=== PATIENT | female | born 1975 | race Caucasian/White ===

== ENCOUNTER 2017-11-04 11:57 | Inpatient (IN) | payer BC ==
--- NOTE | 2017-10-27 11:21 | HP ---
Admitting History and Physical - Primary Care Physician PCP: Kaleb Pan - Admission Chief Complaint: BRCA positive History of Present Illness: 41 year old postmenapausal female of Ashkenazi Heritage BRCA 1 positive. She underwent TAHBSO 07/2017 and is on transdermal estrogen. 04/2017 mammogram showed dense breast and US benign . Breast MRI 08/2017 [facility]. History Source: Patient Limitations to Obtaining History: No Limitations - Past Surgical History Past Surgical History: Yes: (x3), Hysterectomy (TAHBSO 07/2017 benign excisional bx left breast benign 2004) - Smoking History Smoking history: Former smoker Have you smoked in the past 12 months: No - Alcohol/Substance Use Hx Alcohol Use: Yes (2 to 3 per week) Home Medications - Allergies Allergies/Adverse Reactions: Allergies Allergy/AdvReac Type Severity Reaction Status Date / Time Penicillins Allergy Verified 10/27/17 11:33 - Home Medications Home Medications (free text): Vivelle dot Family Disease History - Family Disease History Family Disease History: CA: Grandparent (mat GM ovarian ca 76), Mother (BRCA positive) Other Family History: mat aunt ovarian ca 75 BRCA +. mat [place] breast ca. mat cousin BRCA + Physical Examination Constitutional: Yes: Well Nourished Breast(s): Yes: Other (ptotic A cup breasts no palpable masses or adenopathy bilaterally) Problem List - Problems (1) BRCA1 positive Code(s): Z15.01 - GENETIC SUSCEPTIBILITY TO MALIGNANT NEOPLASM OF BREAST; Z15.09 - GENETIC SUSCEPTIBILITY TO OTHER MALIGNANT NEOPLASM Assessment/Plan Bilateral total nipple sparing prophylactic mastectomies reconstruction
[2017-10-29 12:25] VITALS: BMI 19.9
[2017-11-04] MEDS ORDERED: MIDAZOLAM HCL 2 MG/2 ML SINGLE DOSE VIAL ONE (12:47)
[2017-11-04] MEDS ORDERED: BUPIVACAINE HCL/PF (5 MG/ML) 30 ML VIAL IJ ONE (12:47)
[2017-11-04] MEDS ORDERED: DEXAMETHASONE SOD PHOSPHATE/PF 10 MG/ML SDV ONE (12:47)
[2017-11-04] MEDS ORDERED: PROPOFOL 20 ML ONE (13:37)
[2017-11-04] MEDS ORDERED: ROCURONIUM BROMIDE 50 MG/5 ML VIAL ONE ×2 (13:37→15:02)
[2017-11-04] MEDS ORDERED: SUCCINYLCHOLINE CHLORIDE 200 MG/10 ML VIAL ONE (13:38)
[2017-11-04] MEDS ORDERED: ceFAZolin SODIUM 1 GM VIAL ONE ×2 (13:56→14:15)
[2017-11-04] MEDS ORDERED: ePHEDrine SULFATE 50 MG/1 ML AMPULE ONE (14:08)
[2017-11-04] MEDS ORDERED: GENTAMICIN SO4 80 MG/2 ML VIAL ONE (14:15)
[2017-11-04] MEDS ORDERED: oxyCODONE HCL 5 MG TABLET PO PRN ×2 (14:21→14:23)
[2017-11-04] MEDS ORDERED: ONDANSETRON 4 MG/2 ML VIAL IVPUSH PRN ×2 (14:21→15:36)
[2017-11-04] MEDS ORDERED: LACTATED RINGERS SOLUTION 1,000 ML IV SCH (14:30)
[2017-11-04] MEDS ORDERED: ZOLPIDEM TARTRATE 5 MG TABLET PO PRN (15:36)
[2017-11-04] MEDS ORDERED: ACETAMINOPHEN 325 MG TABLET (FP) PO PRN (15:36)
[2017-11-04] MEDS ORDERED: DEXTROSE 5%-0.45% SALINE 1,000 ML IV SCH (15:45)
[2017-11-04] MEDS ORDERED: NEOSTIGMINE METHYLSULFATE 0.5 MG/ML - 10 ML MDV ONE (16:05)
[2017-11-04] MEDS ORDERED: ONDANSETRON 4 MG/2 ML VIAL ONE (16:12)
[2017-11-04] MEDS ORDERED: traMADol HCL 50 MG TABLET ONE (17:12)
[2017-11-04] MEDS ORDERED: diazePAM 2 MG TABLET ONE (17:12)
[2017-11-04] MEDS ORDERED: ACETAMINOPHEN 325 MG TABLET (FP) PO ONE (17:45)
[2017-11-04] MEDS ORDERED: traMADol HCL 50 MG TABLET PO ONE (17:46)
[2017-11-04] MEDS ORDERED: diazePAM 2 MG TABLET PO ONE (17:46)
[2017-11-04] MEDS: diazePAM 2 MG TABLET PO SCH ×2 (19:26→22:02)
[2017-11-04] MEDS: traMADol HCL 50 MG TABLET PO SCH ×2 (19:26→22:01)
[2017-11-04] MEDS: ACETAMINOPHEN 325 MG TABLET (FP) PO SCH ×2 (19:26→20:55)
[2017-11-05] MEDS: ACETAMINOPHEN 325 MG TABLET (FP) PO SCH ×4 (02:53→21:00)
[2017-11-05] MEDS: diazePAM 2 MG TABLET PO SCH ×2 (06:17→14:42)
[2017-11-05] MEDS: traMADol HCL 50 MG TABLET PO SCH ×2 (06:17→14:40)
[2017-11-05 09:10] LABS: HEMOGLOBIN 11.5 GM/dl (10.7-15.3); MCH 30.6 pg (25.7-33.7); MCHC 34.8 g/dl (32.0-36.0); MEAN CELL VOLUME 87.7 fl (80-96); PLATELET COUNT 217 K/MM3 (134-434); RBC 3.77 M/mm3 (3.60-5.2); RDW 12.2 % (11.6-15.6); WHITE BLOOD COUNT 9.9 K/mm3 (4.0-10.8)
--- NOTE | 2017-11-05 09:31 | OP ---
DATE OF OPERATION: 11/04/2017 PREOPERATIVE DIAGNOSIS: Genetic susceptibility for breast cancer with strong family history, BRCA1 positive. POSTOPERATIVE DIAGNOSIS: Genetic susceptibility for breast cancer with strong family history, BRCA1 positive. PROCEDURE: Bilateral total nipple-sparing mastectomies through an inframammary approach with bilateral direct implant reconstruction with AlloDerm. ANESTHESIA: General endotracheal anesthesia. PRIMARY SURGEON: Jenny Hernandez MD DIRECTOR OF TEACHING AND LEARNING: CHEMA Carlisle PRIMARY SURGEON FOR THE BILATERAL DIRECT IMPLANT RECONSTRUCTION WITH ALLDERM: Jenny Reagan MD HIS DIRECTOR OF TEACHING AND LEARNING: CHEMA Espinosa COMPLICATIONS: There were no complications. INDICATIONS: Briefly, the patient is a 41-year-old postmenopausal white female of Ashkenazi [place] [employer] heritage. She has a strong family history with her maternal great aunt who had breast cancer as well as maternal grandmother who had ovarian cancer and maternal aunt who had ovarian cancer. The patient as well as her mother, maternal aunt, and maternal cousin all tested BRCA1 positive with a 187delAG mutation. The patient had a prophylactic NIKO-BSO July of 2017 and uses transdermal estrogen. She had a recent MRI August of 2017 which was negative and mammography and ultrasound April of 2017 were negative. The patient was seen in consultation regarding risk reduction prophylactic mastectomy. She understood our technique of doing a nipple-sparing mastectomy through an inframammary approach and understood that we do retroareolar biopsies at the time of surgery. If these show cancer, we would remove the nipples. She understood the lack of any evidence drawn from doing prophylactic sentinel lymph node biopsies. Patient understood all complications of the procedure including risk of skin flap necrosis, nipple loss, hematoma, and infection. She was seen by the plastic surgeon preoperatively understood the direct implant reconstruction technique. She was brought in for the procedure on November 04, 2017. In the holding area, site verification was made and informed consent was obtained. She was marked preoperatively by the plastic surgeon. DESCRIPTION OF PROCEDURE: She was brought into the operating room and laid on the OR table in the supine position. Venodynes were placed on the lower extremities prior to induction. She received a gram of Ancef prior to incision. Both breasts were sterilely prepped and draped in the usual fashion. Inframammary incisions were marked out bilaterally in inframammary folds, about 8 cm in length, symmetrically. The left mastectomy was first performed. Incision was made in the inframammary fold 8 cm in length, and the skin edges were everted, and the breast was retracted inferiorly using [place] clamps. The skin flap was raised using the PEAK radiofrequency device superiorly to the level of the clavicle, medially to the level of the sternum, laterally to the level of the latissimus, and inferiorly below the level of the inframammary fold. The breast was taken down off the pectoralis major muscle from inferomedial to superolateral and completely removed intact. It was oriented with the long-lateral short-superior suture and weighed to allow for appropriate cosmetic result. Skin flaps were trimmed for good cosmetic result. A retroareolar biopsy was taken underneath the left nipple areolar complex and sent for frozen section. It came back negative, so, the left nipple was spared. At this point, the right mastectomy was performed using a symmetrical incision in the right inframammary fold 8 cm in length. Again, the skin edges were everted, and the breast tissue retracted inferiorly using [place] clamps. The skin flap was raised superiorly to the level of the clavicle, medially to the level of the sternum, laterally to the level of the latissimus, and inferiorly below the level of the inframammary fold. The breast was taken down off the pectoralis major muscle using electrocautery from inferomedial to superolateral, and completely removed intact. It was oriented with the long-lateral short-superior suture and weighed to allow for appropriate cosmetic result. Skin flaps were trimmed again for a good cosmetic result, and hemostasis was achieved. A right retroareolar biopsy was taken underneath the right nipple areolar complex and sent for frozen section. It came back negative, so, the right nipple was spared, as well. Both breasts were sent in formalin down to Pathology. At this point, bilateral subpectoral direct implant reconstruction was performed by Dr. Reagan using AlloDerm, which was sutured into the inferolateral aspects of both pectoralis major muscles to allow for the direct implant reconstruction. Two Juan drains were placed around each implant, brought through separate stab incisions on the lateral skin flaps, and secured in place using 2-0 nylon sutures. Drains were placed under JUSTIN sterile bulb suction. All wounds were closed by plastic surgery using interrupted 3-0 deep dermal PDS suture and a running 4-0 subcuticular Biosyn suture. Mastisol and Steri-Strips were applied over the wounds. The patient did receive a pectoral block preoperatively in the holding area prior to coming to the OR for postoperative pain control. The patient will be extubated at the end of the case and recovered in the recovery room and then admitted postoperatively for pain management and wound management. All sponge and needle counts were correct at this point in the case. Estimated blood loss was about 100 mL. She was hemodynamically stable throughout. We did use the SPY Skin Perfusion Device at the end of the case, and there was some slow decreased perfusion in both nipple areolar complexes, so, we will use a bear-hugger which we placed on the patient in the perioperative period. JENNY HERNANDEZ M.D. [id number]
--- NOTE | 2017-11-05 09:31 | PN ---
Progress Note, Physician Chief Complaint: S/P bilateral mastectomy with implant reconstruction POD#1 History of Present Illness: Patient was seen at the bedside and reports good pain control with no other complaints. - Current Medication List Current Medications: Active Medications Acetaminophen (Tylenol -) 650 mg PO Q6H [facility] Last Admin: 11/05/17 08:59 Dose: 650 mg Acetaminophen (Tylenol -) 650 mg PO Q4H PRN PRN Reason: FEVER Diazepam (Valium -) 2 mg PO Q8H [facility] Last Admin: 11/05/17 06:17 Dose: 2 mg Fentanyl (Sublimaze Injection -) 25 mcg IVPUSH [id number] PRN PRN Reason: PAIN-PACU ORDER X 4 DOSES ONLY Lactated Ringer's (Lactated Ringers Solution) 1,000 mls @ 125 mls/hr IV ASDIR [facility] Last Admin: 11/04/17 19:26 Dose: Not Given Dextrose/Sodium Chloride (D5-1/2ns -) 1,000 mls @ 100 mls/hr IV ASDIR [facility] Last Admin: 11/04/17 19:25 Dose: Not Given Levofloxacin (Levaquin 500 Mg Premixed Ivpb -) 500 mg in 100 mls @ 100 mls/hr IVPB DAILY [facility] Ondansetron HCl (Zofran Injection) 4 mg IVPUSH Q6H PRN PRN Reason: NAUSEA AND/OR VOMITING Ondansetron HCl (Zofran Injection) 4 mg IVPUSH Q6H PRN PRN Reason: NAUSEA AND/OR VOMITING Oxycodone HCl (Roxicodone -) 5 mg PO Q4H PRN PRN Reason: Pain Level > 4 Oxycodone HCl (Roxicodone -) 10 mg PO Q4H PRN PRN Reason: PAIN LEVEL 6-10 Tramadol HCl (Ultram -) 50 mg PO Q8H [facility] Last Admin: 11/05/17 06:17 Dose: 50 mg Zolpidem Tartrate (Ambien -) 5 mg PO HS PRN PRN Reason: Insomnia - Objective Vital Signs: Vital Signs Temperature 98.1 F 11/05/17 06:12 Pulse Rate 85 11/05/17 06:12 Respiratory Rate 18 11/05/17 08:03 Blood Pressure 98/53 11/05/17 06:12 O2 Sat by Pulse Oximetry (%) 98 11/05/17 08:03 Constitutional: Yes: Well Nourished, Calm Breast(s): Yes: Other (Bilateral breast flaps are warm but dusky. No evidence of epidermolysis noted. Steristrips intact without discharge or erythema. JPs with serosanginous discharge noted.) Assessment/Plan Plan: Patient to receive HBO treatment tx today as per Dr. Pan and Dr. Reagan. Nitropaste to be applied to nipples Continue current tx with axbx and pain control.
--- NOTE | 2017-11-05 09:47 | PN ---
Progress Note (short form) - Note Progress Note: ANESTHESIOLOGY POST-OP CHECK 41F s/p prophylactic bilateral mastectomy under general anesthesia POD #1. No acute complaints. Pain 1-2/10. Tolerating PO, ambulating and voiding. Denies N/ V. Vital Signs Temperature 98.1 F 11/05/17 06:12 Pulse Rate 85 11/05/17 06:12 Respiratory Rate 18 11/05/17 08:03 Blood Pressure 98/53 11/05/17 06:12 O2 Sat by Pulse Oximetry (%) 98 11/05/17 08:03 Active Medications Acetaminophen (Tylenol -) 650 mg PO Q6H [facility] Last Admin: 11/05/17 08:59 Dose: 650 mg Acetaminophen (Tylenol -) 650 mg PO Q4H PRN PRN Reason: FEVER Diazepam (Valium -) 2 mg PO Q8H [facility] Last Admin: 11/05/17 06:17 Dose: 2 mg Fentanyl (Sublimaze Injection -) 25 mcg IVPUSH [id number] PRN PRN Reason: PAIN-PACU ORDER X 4 DOSES ONLY Lactated Ringer's (Lactated Ringers Solution) 1,000 mls @ 125 mls/hr IV ASDIR [facility] Last Admin: 11/04/17 19:26 Dose: Not Given Dextrose/Sodium Chloride (D5-1/2ns -) 1,000 mls @ 100 mls/hr IV ASDIR [facility] Last Admin: 11/04/17 19:25 Dose: Not Given Levofloxacin (Levaquin 500 Mg Premixed Ivpb -) 500 mg in 100 mls @ 100 mls/hr IVPB DAILY [facility] Ondansetron HCl (Zofran Injection) 4 mg IVPUSH Q6H PRN PRN Reason: NAUSEA AND/OR VOMITING Ondansetron HCl (Zofran Injection) 4 mg IVPUSH Q6H PRN PRN Reason: NAUSEA AND/OR VOMITING Oxycodone HCl (Roxicodone -) 5 mg PO Q4H PRN PRN Reason: Pain Level > 4 Oxycodone HCl (Roxicodone -) 10 mg PO Q4H PRN PRN Reason: PAIN LEVEL 6-10 Tramadol HCl (Ultram -) 50 mg PO Q8H [facility] Last Admin: 11/05/17 06:17 Dose: 50 mg Zolpidem Tartrate (Ambien -) 5 mg PO HS PRN PRN Reason: Insomnia Gen: Awake, alert No apparent anesthesia complications. Pain well controlled. Continue management as per primary team.
[2017-11-05] MEDS ORDERED: NITROGLYCERIN 2% OINTMENT - 1GM PACKET TD ONE ×2 (10:07→20:00)
[2017-11-06] MEDS: diazePAM 2 MG TABLET PO SCH ×4 (00:04→22:25)
[2017-11-06] MEDS: traMADol HCL 50 MG TABLET PO SCH ×3 (00:04→22:28)
[2017-11-06] MEDS: ACETAMINOPHEN 325 MG TABLET (FP) PO SCH ×4 (03:27→21:24)
--- NOTE | 2017-11-06 09:48 | PN ---
Progress Note (short form) - Note Progress Note: Doing better after HBO treatment Some darkened area at NAC Will continue warmth and with Minesh Mckeon Cont admission and revaluate on daily basis. Full discussion held with patient who is very compliant She understands there may be some loss of skin and NAC ?
[2017-11-06] MEDS ORDERED: NITROGLYCERIN 2% OINTMENT - 1GM PACKET TD ONE (09:59)
[2017-11-06] MEDS ORDERED: NITROGLYCERIN 2% OINTMENT - 1GM PACKET TD SCH (10:00)
[2017-11-06] MEDS: NITROGLYCERIN 2% OINTMENT - 1GM PACKET TD SCH ×2 (10:10→21:24)
--- NOTE | 2017-11-06 10:25 | PN ---
Progress Note, Physician Chief Complaint: Strong family history with genetic predisposition for breast cancer BRCA1+. History of Present Illness: The patient was found to be BRCA1+ and decided to go forward with risk reduction prophylactic nipple sparing mastectomies with bilateral direct to implant reconstructions with alloderm. She is admitted post-operatively for pain and wound management. - Current Medication List Current Medications: Active Medications Acetaminophen (Tylenol -) 650 mg PO Q6H [facility] Last Admin: 11/06/17 10:03 Dose: 650 mg Acetaminophen (Tylenol -) 650 mg PO Q4H PRN PRN Reason: FEVER Diazepam (Valium -) 2 mg PO Q8H [facility] Last Admin: 11/06/17 10:03 Dose: 2 mg Fentanyl (Sublimaze Injection -) 25 mcg IVPUSH [id number] PRN PRN Reason: PAIN-PACU ORDER X 4 DOSES ONLY Lactated Ringer's (Lactated Ringers Solution) 1,000 mls @ 125 mls/hr IV ASDIR [facility] Last Admin: 11/04/17 19:26 Dose: Not Given Dextrose/Sodium Chloride (D5-1/2ns -) 1,000 mls @ 100 mls/hr IV ASDIR [facility] Last Admin: 11/04/17 19:25 Dose: Not Given Levofloxacin (Levaquin 500 Mg Premixed Ivpb -) 500 mg in 100 mls @ 100 mls/hr IVPB DAILY [facility] Last Admin: 11/06/17 10:03 Dose: 100 mls/hr Nitroglycerin (Nitro-Bid 2% Paste -) 0.5 inch TD BID [facility] Ondansetron HCl (Zofran Injection) 4 mg IVPUSH Q6H PRN PRN Reason: NAUSEA AND/OR VOMITING Ondansetron HCl (Zofran Injection) 4 mg IVPUSH Q6H PRN PRN Reason: NAUSEA AND/OR VOMITING Oxycodone HCl (Roxicodone -) 5 mg PO Q4H PRN PRN Reason: Pain Level > 4 Oxycodone HCl (Roxicodone -) 10 mg PO Q4H PRN PRN Reason: PAIN LEVEL 6-10 Tramadol HCl (Ultram -) 50 mg PO Q8H [facility] Last Admin: 11/06/17 10:06 Dose: 50 mg Zolpidem Tartrate (Ambien -) 5 mg PO HS PRN PRN Reason: Insomnia - Objective Vital Signs: Vital Signs Temperature 98.1 F 11/06/17 06:00 Pulse Rate 77 11/06/17 06:00 Respiratory Rate 18 11/06/17 09:00 Blood Pressure 95/49 11/06/17 06:00 O2 Sat by Pulse Oximetry (%) 96 11/06/17 09:00 Constitutional: Yes: Well Nourished, No Distress, Calm Eyes: Yes: WNL HENT: Yes: Atraumatic, Normocephalic Neck: Yes: WNL Cardiovascular: Yes: Regular Rate and Rhythm Respiratory: Yes: Regular, CTA Bilaterally Gastrointestinal: Yes: Normal Bowel Sounds, Soft ...Rectal Exam: Yes: Deferred Genitourinary: Yes: WNL Breast(s): Yes: Other (Wounds clean, dry, and intact. Nipples with some delayed capillary refill but viable. Drains functioning well.) Musculoskeletal: Yes: WNL Extremities: Yes: WNL Integumentary: Yes: WNL Wound/Incision: Yes: Clean/Dry, Well Approximated Neurological: Yes: Alert, Oriented ...Motor Strength: WNL Psychiatric: Yes: WNL Labs: CBC, BMP 11/05/17 08:00 Problem List - Problems (1) BRCA1 positive Assessment/Plan: The patient is doing well POD#2 s/p bilateral nipple sparing mastectomies with bilateral direct to implant reconstructions with alloderm. She has good pain control. Stable low BP but patient asymptomatic. Wounds clean, dry, and intact. Drains functioning well. Nipples with some signs of possible early ischemia but with capillary refill though slightly delayed. Received hyperbaric oxygen treatment yesterday and is on for treatment again on Wednesday after discharge. Patient to remain for pain management and to continue to follow wounds. Continue levofloxacin and percocet for pain. Will try to arrange for continued hyperbaric oxygen treatments down at [facility] to begin on Wednesday since this would be closer to her residence. Code(s): Z15.01 - GENETIC SUSCEPTIBILITY TO MALIGNANT NEOPLASM OF BREAST; Z15.09 - GENETIC SUSCEPTIBILITY TO OTHER MALIGNANT NEOPLASM
[2017-11-07] MEDS: ACETAMINOPHEN 325 MG TABLET (FP) PO SCH ×4 (02:30→20:59)
[2017-11-07] MEDS: traMADol HCL 50 MG TABLET PO SCH ×3 (06:54→22:30)
[2017-11-07] MEDS: diazePAM 2 MG TABLET PO SCH ×3 (06:54→22:30)
--- NOTE | 2017-11-07 07:55 | OP ---
DATE OF OPERATION: 11/05/2017 PREOPERATIVE DIAGNOSES: 1. Bilateral acquired chest wall deformity status post bilateral mastectomy (611.89). 2. Personal history of genetic carcinoma. POSTOPERATIVE DIAGNOSES: 1. Bilateral acquired chest wall deformity status post bilateral mastectomy (611.89). 2. Personal history of genetic carcinoma. PROCEDURE: 1. Right immediate breast reconstruction utilizing immediate insertion of silicone breast implant and DermACELL reconstruction. 2. Left immediate breast reconstruction utilizing immediate insertion of silicone breast implant and DermACELL reconstruction. 3. Intravenous injection of isocyanide green dye and intraoperative diagnostic evaluation of non-coronary intraoperative fluorescein vascular angiography x 2. SURGEON: Jenny Reagan MD FINISH MACHINE TENDER: CHEMA Espinosa ANESTHESIA: General. OPERATIVE PROCEDURE IN DETAIL: The patient was taken to the operating room. After induction of general anesthesia in the supine position, both arms were extended and padded. Venodyne boots were placed. The entire chest wall was painted with ChloraPrep solution over its entire extent, and sterile drapes were placed in the usual fashion. The markings, which had been made in the standing position preoperatively, were reoutlined with the patient's knowledge. Time-out procedure was performed. Attention was turned by Dr. Jenny Pan, to the mastectomies. Bilateral inframammary incisions were made and Dr. Pan performed mastectomies. This will be dictated under separate cover. Upon completion of the mastectomies, the wounds were copiously irrigated and attention was turned to the right breast. A subpectoral dissection was begun on the right breast, superiorly from the 2nd rib, medially to the sternal fibers, and down to the inframammary fold, elevating the pectoralis major muscle from its insertion. At this point, an 8.0 x 16.0 sheet of DermACELL was brought into the field and sutured superiorly along the pectoralis major muscle after rehydration. This was carried along the lateral mammary fold and down the side of the breast reconstruction. At this point, a Natrelle Inspira Soft Touch, style SSF, implant was chosen, 385 mL placed bilaterally. The left breast tissue removed was 109 gm, and the right breast approximately 98 gm. This implant was placed and then sutured with 3-0 Vicryl suture continued along the inframammary fold, completely covering the implant itself. The exact same procedure was carried out symmetrically on the opposite breast, also placing a Natrelle Inspira Soft Touch, style SSF, implant in the same subpectoral pocket. Good symmetry was seen in the sitting position. She had AlloDerm Contour Medium Perforated tissue placed, on both sides. After the implants were in place, the patient was injected with 10 mL of isocyanide green dye, and the Spy imaging system was brought into the field. Spy intraoperative angiogram showed decreased blood flow to the nipple areolar complexes both before and after the mastectomy and placement of the implants. Two Sergio-Trevino drains were brought out through separate stab wounds laterally. The Smart Infuser pump catheter was inserted medially and into the subpectoral position. Both wounds were closed symmetrically using 3-0 PDS suture on the deep tissue, 3-0 in a deep dermal fashion, and 4-0 in a subcuticular fashion. Both wounds were dressed sterilely with Mastisol and Steri-Strips with a surgical bra and a compression strap. The patient tolerated the procedure well. She was awakened, extubated and transferred to the recovery room in satisfactory condition. The legal assistant was present during the entire portion of the operation and closure. JENNY REAGAN M.D. [id number]
--- NOTE | 2017-11-07 10:11 | PN ---
Progress Note, Physician Chief Complaint: Strong family history with genetic predisposition for breast cancer BRCA1+. History of Present Illness: The patient was found to be BRCA1+ and decided to go forward with risk reduction prophylactic nipple sparing mastectomies with bilateral direct to implant reconstructions with alloderm. She is admitted post-operatively for pain and wound management. - Current Medication List Current Medications: Active Medications Acetaminophen (Tylenol -) 650 mg PO Q6H [facility] Last Admin: 11/07/17 02:30 Dose: Not Given Acetaminophen (Tylenol -) 650 mg PO Q4H PRN PRN Reason: FEVER Diazepam (Valium -) 2 mg PO Q8H [facility] Last Admin: 11/07/17 06:54 Dose: Not Given Fentanyl (Sublimaze Injection -) 25 mcg IVPUSH [id number] PRN PRN Reason: PAIN-PACU ORDER X 4 DOSES ONLY Lactated Ringer's (Lactated Ringers Solution) 1,000 mls @ 125 mls/hr IV ASDIR [facility] Last Admin: 11/04/17 19:26 Dose: Not Given Levofloxacin (Levaquin -) 500 mg PO HS [facility] Stop: 11/09/17 21:59 Last Admin: 11/06/17 21:23 Dose: 500 mg Nitroglycerin (Nitro-Bid 2% Paste -) 0.5 inch TD BID [facility] Last Admin: 11/06/17 21:24 Dose: 0.5 inch Ondansetron HCl (Zofran Injection) 4 mg IVPUSH Q6H PRN PRN Reason: NAUSEA AND/OR VOMITING Ondansetron HCl (Zofran Injection) 4 mg IVPUSH Q6H PRN PRN Reason: NAUSEA AND/OR VOMITING Oxycodone HCl (Roxicodone -) 5 mg PO Q4H PRN PRN Reason: Pain Level > 4 Oxycodone HCl (Roxicodone -) 10 mg PO Q4H PRN PRN Reason: PAIN LEVEL 6-10 Tramadol HCl (Ultram -) 50 mg PO Q8H [facility] Last Admin: 11/07/17 06:54 Dose: Not Given Zolpidem Tartrate (Ambien -) 5 mg PO HS PRN PRN Reason: Insomnia - Objective Vital Signs: Vital Signs Temperature 98.7 F 11/07/17 05:53 Pulse Rate 78 11/07/17 05:53 Respiratory Rate 20 11/07/17 08:24 Blood Pressure 90/57 11/07/17 05:53 O2 Sat by Pulse Oximetry (%) 98 11/07/17 08:24 Constitutional: Yes: Well Nourished, No Distress, Calm Eyes: Yes: WNL HENT: Yes: Atraumatic, Normocephalic Neck: Yes: WNL Cardiovascular: Yes: Regular Rate and Rhythm Respiratory: Yes: Regular, CTA Bilaterally Gastrointestinal: Yes: Normal Bowel Sounds, Soft ...Rectal Exam: Yes: Deferred Genitourinary: Yes: WNL Breast(s): Yes: Other (Mastectomy wounds clean, dry, and intact. Drains functioning well. Nipples still with ischemic changes but with capillary refill in areolar complexes.) Musculoskeletal: Yes: WNL Extremities: Yes: WNL Integumentary: Yes: WNL Wound/Incision: Yes: Clean/Dry, Well Approximated Neurological: Yes: Alert, Oriented Psychiatric: Yes: WNL Labs: CBC, BMP 11/05/17 08:00 Problem List - Problems (1) BRCA1 positive Assessment/Plan: The patient is doing well POD#3 s/p bilateral nipple sparing mastectomies with bilateral direct to implant reconstructions with alloderm. She has good pain control. Stable low BP but patient asymptomatic. Wounds clean, dry, and intact. Drains functioning well. Nipples with some signs of possible early ischemia but with capillary refill in areolas though slightly delayed. Received hyperbaric oxygen treatment Wednesday and is on for treatment again on Wednesday after discharge. Patient to remain for pain management and to continue to follow wounds. Continue levofloxacin and percocet for pain. Will try to arrange for continued hyperbaric oxygen treatments down at [facility] to begin on Wednesday since this would be closer to her residence. Plan for discharge in AM. Code(s): Z15.01 - GENETIC SUSCEPTIBILITY TO MALIGNANT NEOPLASM OF BREAST; Z15.09 - GENETIC SUSCEPTIBILITY TO OTHER MALIGNANT NEOPLASM
--- NOTE | 2017-11-07 10:18 | DS ---
Physical Examination Vital Signs: Vital Signs Temperature 98.7 F 11/07/17 05:53 Pulse Rate 78 11/07/17 05:53 Respiratory Rate 20 11/07/17 08:24 Blood Pressure 90/57 11/07/17 05:53 O2 Sat by Pulse Oximetry (%) 98 11/07/17 08:24 Constitutional: Yes: Well Nourished, No Distress, Calm Eyes: Yes: WNL HENT: Yes: Atraumatic, Normocephalic Neck: Yes: WNL Cardiovascular: Yes: Regular Rate and Rhythm Respiratory: Yes: Regular, CTA Bilaterally Gastrointestinal: Yes: Normal Bowel Sounds, Soft ...Rectal Exam: Yes: Deferred Renal/: Yes: WNL Breast(s): Yes: Other (Matectomy wounds clean, dry, and intact. Drains functioning well. Nipples with some ischemia bilaterally but good but delayed capillary refill in areolar complexes.) Musculoskeletal: Yes: WNL Extremities: Yes: WNL Integumentary: Yes: WNL Wound/Incision: Yes: Clean/Dry, Well Approximated Neurological: Yes: Alert, Oriented ...Motor Strength: WNL Psychiatric: Yes: WNL Labs: CBC, BMP //18 08:00 Discharge Summary Reason For Visit: GENETIC SUSCEPTIBILITY Genetic susceptibility for breast cancer BCRA1+ Procedures: Principal: Bilateral Nipple sparing mastectomies with bilateral direct to implant reconstructions with alloderm Hospital Course: The patient was admitted post-operatively after her bilateral nipple sparing mastectomies with direct to implant reconstructions with alloderm. She was noted to have some early ischemic changes aroud her nipples bilaterally and hyperbaric oxygen treatments were started to prevent flap loss on POD#1. She had stabel hypotension which was asymptomatic and remained for pain control and wound management and was felt to be stable for diuscharge with good pain control by POD#4. She will be discharged home with post-op hyperbaric oxygen treatments and will follow up with Drs. Pan and Merary in 1 week. Condition: Good - Instructions Diet, Activity, Other Instructions: Regular diet. Keep compressive bra on day/night. No heavy lifting or exercise. Record JUSTIN outputs day/night. No bath shower until drains removed. percocet for pain. Take cipro BID until drains removed. Referrals: Kaleb Pan MD [Staff Physician] - Ricardo Reagan MD [Staff Physician] - Disposition: HOME - Home Medications Comprehensive Discharge Medication List: Ambulatory Orders Omeprazole Magnesium [Prilosec Otc] 20 mg PO DAILY 10/29/17 Estradiol [Vivelle-Dot] 1 each TD ASDIR 11/04/17 Ciprofloxacin HCl [Cipro] 500 mg PO BID #20 tablet 11/05/17 Oxycodone HCl/Acetaminophen [Percocet 5-325 mg Tablet] 1 - 2 tab PO Q6H PRN #30 tab MDD 6 11/05/17
[2017-11-07] MEDS: NITROGLYCERIN 2% OINTMENT - 1GM PACKET TD SCH ×2 (10:19→21:11)
[2017-11-07] MEDS ORDERED: DOCUSATE SODIUM 100 MG CAPSULE (FP) PO PRN (10:21)
[2017-11-08] MEDS: ACETAMINOPHEN 325 MG TABLET (FP) PO SCH ×2 (03:09→09:36)
[2017-11-08] MEDS: diazePAM 2 MG TABLET PO SCH (05:55)
[2017-11-08] MEDS: traMADol HCL 50 MG TABLET PO SCH ×2 (05:55→09:36)
[2017-11-08 06:05] VITALS: BP 95/63; PULSE 75; TEMP 98.1
--- NOTE | 2017-11-08 09:13 | PN ---
Progress Note, Physician Chief Complaint: S/P bilateral mastectomy with implant reconstruction POD #4 History of Present Illness: Patient was seen at the bedside and is comfortable without complaint of pain. - Current Medication List Current Medications: Active Medications Acetaminophen (Tylenol -) 650 mg PO Q6H [facility] Last Admin: 11/08/17 03:09 Dose: Not Given Acetaminophen (Tylenol -) 650 mg PO Q4H PRN PRN Reason: FEVER Diazepam (Valium -) 2 mg PO Q8H [facility] Last Admin: 11/08/17 05:55 Dose: Not Given Docusate Sodium (Colace -) 100 mg PO TID PRN PRN Reason: CONSTIPATION Lactated Ringer's (Lactated Ringers Solution) 1,000 mls @ 125 mls/hr IV ASDIR [facility] Last Admin: 11/04/17 19:26 Dose: Not Given Levofloxacin (Levaquin -) 500 mg PO HS [facility] Stop: 11/09/17 21:59 Last Admin: 11/07/17 21:00 Dose: 500 mg Nitroglycerin (Nitro-Bid 2% Paste -) 0.5 inch TD BID [facility] Last Admin: 11/07/17 21:11 Dose: 0.5 inch Ondansetron HCl (Zofran Injection) 4 mg IVPUSH Q6H PRN PRN Reason: NAUSEA AND/OR VOMITING Oxycodone HCl (Roxicodone -) 5 mg PO Q4H PRN PRN Reason: Pain Level > 4 Oxycodone HCl (Roxicodone -) 10 mg PO Q4H PRN PRN Reason: PAIN LEVEL 6-10 Tramadol HCl (Ultram -) 50 mg PO Q8H [facility] Last Admin: 11/08/17 05:55 Dose: Not Given Zolpidem Tartrate (Ambien -) 5 mg PO HS PRN PRN Reason: Insomnia - Objective Vital Signs: Vital Signs Temperature 98.1 F 11/08/17 06:00 Pulse Rate 75 11/08/17 06:00 Respiratory Rate 20 11/08/17 06:00 Blood Pressure 95/63 11/08/17 06:00 O2 Sat by Pulse Oximetry (%) 100 11/08/17 06:04 Constitutional: Yes: Well Nourished, Calm Breast(s): Yes: Other (Bilateral ischemic nipple changes noted without blistering or open wounds noted. Steristrips intact without discharge or erythema. JUSTIN x 4 with serosanginous discharge noted.) Labs: CBC, BMP 11/05/17 08:00 Assessment/Plan assessment: S/P bilateral mastectomy with implant reconstruction with ischemic changes noted plan: Hypobaric chamber treatment today at [facility] Patient to receive outpatient tx with chamber at [facility] discharge today and followup with Dr. Reagan and Dr. Pan pain meds prn and axbx daily at home monitor UJSTIN output and record at home
[2017-11-08] MEDS: NITROGLYCERIN 2% OINTMENT - 1GM PACKET TD SCH (09:56)
--- NOTE | 2017-11-09 15:54 | PATH ---
Surgical Pathology Report Patient Name: DANY PULIDO Med. Rec. #: [id number] /Age/Gender: 1975 (Age: 41) / F Account: [id number] Location: [facility] MED-SURG Taken: 11/04/2017 Received: 11/04/2017 Reported: 11/09/2017 Physicians: Kaleb Pan M.D. Specimen(s) Received A: LEFT RETROAREOLAR BIOPSY. FS B: RIGHT RETROAREOLAR BIOPSY. FS C: LEFT BREAST D: RIGHT BREAST Clinical History BRCA 1+ prophylactic Intraoperative Consult Diagnosis A. Left breast, retroareolar biopsy, frozen section: Negative for malignancy. B. Right breast, retroareolar biopsy, frozen section: Negative for malignancy. Ignacio Swanson M.D., 11/04/17 Final Diagnosis A. RETROAREOLAR, LEFT, BIOPSY (FS): BENIGN BREAST TISSUE; NEGATIVE FOR MALIGNANCY. B. RETROAREOLAR, RIGHT, BIOPSY (FS): BENIGN BREAST TISSUE; NEGATIVE FOR MALIGNANCY. C. BREAST, LEFT, NIPPLE-SPARING MASTECTOMY: BENIGN BREAST TISSUE. D. BREAST, RIGHT, NIPPLE-SPARING MASTECTOMY: BENIGN BREAST TISSUE. Electronically Signed Dilcia Ewing M.D. Gross Description A. Received fresh for frozen section labeled "left retroareolar biopsy," is a 0.3 x 0.2 x 0.2 cm lloyd-red portion of fibroadipose tissue. The specimen is submitted for frozen section. The frozen section residue is entirely submitted in one cassette. B. Received fresh for frozen section labeled "right retroareolar biopsy," is a 0.5 x 0.3 x 0.2 cm lloyd red portion of fibroadipose tissue. The specimen is submitted for frozen section. The frozen section residue is entirely submitted in one cassette. C. Received in formalin, labeled "left breast," is a 116 gram, 12.5 x 10.5 x 1.8 cm. left mastectomy specimen with a short suture marking the superior aspect and a long suture marking the lateral aspect of the specimen, per the surgeon. There is no skin or nipple present. The deep margin is inked black and the anterior soft tissue margin is inked blue. The specimen is serially sectioned from medial to lateral. Sectioning reveals abundant dense, white fibrous tissue with dilated ducts. [employer] Service sections are submitted in 14 cassettes as follows: 1-3-upper outer quadrant; 4-6-lower outer quadrant; 7-9-upper inner quadrant; 10-12-lower inner quadrant; 13-anterior soft tissue margin; 14-deep margin. D. Received in formalin, labeled "right breast," is a 100 gram, 10.3 x 9.0 x 2.4 cm. right mastectomy specimen with a short suture marking the superior aspect and a long suture marking the lateral aspect of the specimen, per the surgeon. There is no skin or nipple present. The deep margin is inked black and the anterior soft tissue margin is inked blue. The specimen is serially sectioned from lateral to medial. Sectioning reveals abundant dense, white fibrous tissue. Superintendent Service sections are submitted in 14 cassettes as follows: 1-3-upper outer quadrant; 4-6-lower outer quadrant; 7-9-upper inner quadrant; 10-12-lower inner quadrant; 13-anterior soft tissue margin; 14-deep margin. Time to formalin fixation: 10 minutes Total formalin fixation time: Approximately 27 hours. 11/05/2017 [facility]11/05/2017
== END 2017-11-08 10:15 | disposition home or self-care (01) | DRG 585 ==
LOC: FM/S 12:30
PROVIDERS: ADMIT Surgery Surgical Oncology; ATTEND Surgery Surgical Oncology
PROC: 0HTV0ZZ Resection of Bilateral Breast, Open Approach (ICD-10-PCS; principal; 2017-11-04 14:13)
PROC: 0HUV0JZ Supplement Bilateral Breast with Synthetic Substitute, Open Approach (ICD-10-PCS; 2017-11-04 14:13)
DX: Z40.01 Encounter for prophylactic removal of breast (principal); M95.4 Acquired deformity of chest and rib; Z15.01 Genetic susceptibility to malignant neoplasm of breast
CPT/HCPCS: 36415; 84703; 85027; 88307-TC; 88331-TC; 94010; 94760; G0277